=== PATIENT | female | born 1940 | race Caucasian/White ===

== ENCOUNTER → 2017-09-23 | Day surgery (SDC) | payer OTHER ==
[~2017-09-23] VITALS: Ht 167.6 cm; Wt 81.6 kg
[~2017-09-23] MED LIST: ASPIR 8181 MG PO; CO Q-1075 MG PO; COMBIGAN EYE DR10 ML OPHTHALMIC; ENDUR-ACIN500 MG PO; FISH OIL 1,001000 M2 PO; LEVOXYL100 MCG PO; LUMIGAN2.5 M1 OPHTHALMIC; MULTIVITAMINS1 EAC7 PO; PROBIOTIC1 EAC1 PO; SINGULAIR 10 MG10 M1 PO; VENTOLIN HFA 1818 GM INH; VITAMIN B-12500 MC5 SUBLING; VITAMIN C1000 MG PO; VITAMIN D2000 UNIT PO; ZESTRIL20 MG PO; ZINC50 M1 PO; ZOCOR20 MG PO
--- NOTE | ~2017-09-23 | EKG ---
[address] [address] ELECTROCARDIOGRAM REPORT Name: MILO PATINO [id number] Admission: 09/23/17 Attend Phys: Yong Kaufman Discharge: Date of : 44 Report #: [id number] THIS REPORT FOR: //name// [facility] Test Date: 2017-09-23 Test Time: 12:26:11 Pat Name: MILO PATINO Department: Room: Gender: F Health Program Analyst: HAYES : 1940 Requested By: Yong Mata Order Number: [id number] MD: William Davis Measurements Intervals [place] Rate: 82 P: 56 MD: 162 QRS: -38 QRSD: 102 T: 52 QT: 369 QTc: 431 Interpretive Statements Sinus rhythm Left axis deviation Abnormal R-wave progression, early transition No previous ECG available for comparison Electronically Signed On 09-25-2017 15:14:26 CDT by William Davis [email or web address] <ELECTRONICALLY SIGNED> By: William Davis MD, [facility] 09/25/17 1514 1226 1226 William Davis MD, FACC /EPI
--- NOTE | ~2017-09-23 | O ---
[facility] [place] [address] OPERATIVE REPORT Name: MILO PATINO Room #: REG [facility] M..#: [id number] Admission: 09/23/17 Attend Phys: Yong Kaufman Discharge: Date of : 44 Report #: [id number] THIS REPORT FOR: //name// CC: Yong Harley DATE OF SERVICE: 09/23/2017 PREOPERATIVE DIAGNOSIS: Right 2-part proximal humeral nonunion. POSTOPERATIVE DIAGNOSIS: Right 2-part proximal humeral nonunion. PROCEDURE PERFORMED: Open reduction and internal fixation of right proximal humeral nonunion with allograft bone grafting and the platelet-rich plasma application. SURGEON: Yong Mata MD. BLENDER HELPER: Mariaa Johnson PA-C. ANESTHESIA: General with preoperative ultrasound-guided interscalene block. FLUIDS: 800 mL crystalloid. ESTIMATED BLOOD LOSS: Approximately 30 mL. IMPLANTS UTILIZED: Synthes proximal humeral locking plate, RTI Biologics 30 mL of cancellous bone graft and Arthrex PRP 4 mL per the gareth system. DESCRIPTION OF PROCEDURE: After proper identification of the patient and operative site in preoperative holding area, the operative site was signed by myself. Prophylactic antibiotics given. The patient elected to receive an interscalene block after reviewing the risks, benefits, alternatives and complications with Anesthesia. After satisfactory block, the patient was brought back to the operative suite after induction of satisfactory general anesthesia, the patient was carefully positioned in the beach chair with head of bed elevated approximately 40 degrees. Right shoulder was sterilely prepped and draped in usual manner ,and spider TenFlirq limb positioning system was utilized throughout the entire procedure. Final skin draping was with Ioban. Anterior deltopectoral approach was planned. Skin was incised sharply. Full thickness skin flaps were developed. Cephalic vein was identified and retracted laterally. A Olivares shoulder retractor was used to retract the soft tissues, and the fracture site was identified. Granulation type tissue was noted between the head and shaft portion, and this was carefully removed with a rongeur and curette back to bleeding bone surface. Some of the hypertrophic type callus along the more medial and posterior aspect of the shaft was left intact. The [address] [address] OPERATIVE REPORT Name: MILO PATINO Room #: REG [facility] M.R.#: [id number] Admission: 09/23/17 Attend Phys: Yong Kaufman Discharge: Date of : 44 Report #: [id number] head could be reduced in a satisfactory manner and 30 mL of allograft cancellous cubes mixed with 4 mL of the prepared platelet-rich plasma was placed into the bone defect after it had been carefully debrided. The alignment was satisfactory in the AP and lateral planes, and a Synthes proximal humeral plate was provisionally secured. #2 FiberWire had been placed into the cuff tuberosity junction of both the greater and lesser tuberosities and placed through the plate. Provisional plate fixation was checked with C-arm. It was secured with single cortical screw and K-wires. After satisfactory placement, additional screws were placed into the humeral head that were locking screws and then a total of 6 cortices of fixation was achieved distally. The repair construct rotated as an unit, appeared to be satisfactorily reduced. Sutures were tied. All screws appeared to be extraarticular with rotating the humeral head from an AP plane to a lateral plane. The wound was irrigated with antibiotic irrigant. Care was taken to not irrigate the bone grafted area, and 1 gram vancomycin powder was utilized, half of it deep, half of it more superficial. Deltopectoral interval was closed with 0 Vicryl, 2-0 Vicryl, the subcutaneous tissues. Final skin closure with a running Monocryl. This was sealed with Dermabond. Sterile dressing was applied. Next, a PolarCare unit was applied as well as a sling and abduction pillow. The patient was awakened and transferred to the recovery room in stable condition. By: 1522 1625 Yong Mata MD /edyta
[2017-09-23 13:09] VITALS: BP 146/98
[2017-09-23 15:40] VITALS: BP 146/98
== END | disposition home or self-care (01) ==
LOC: OR 09:17
DX: S42.221K 2-part displaced fracture of surgical neck of right humerus, subsequent encounter for fracture with nonunion (principal); I10 Essential (primary) hypertension; E78.00 Pure hypercholesterolemia, unspecified; J45.909 Unspecified asthma, uncomplicated; H40.9 Unspecified glaucoma; E89.0 Postprocedural hypothyroidism; Z98.51 Tubal ligation status; Z90.710 Acquired absence of both cervix and uterus; Z98.890 Other specified postprocedural states; Z96.651 Presence of right artificial knee joint; Z79.899 Other long term (current) drug therapy; Z79.82 Long term (current) use of aspirin; Z85.828 Personal history of other malignant neoplasm of skin; X58.XXXD Exposure to other specified factors, subsequent encounter
CPT/HCPCS: 50010; 50101; 50172; 50341; 50386; 50417; 50568; 50697; 50733; 50935; 51439; 54118; 56524; 56525; 56526; 56530; 56667; 57103; 62110; 62900; 64039; 70005